=== PATIENT | female | born 1980 | race Two or more races ===

== ENCOUNTER 2019-06-01 10:23 | Inpatient (IN) | payer BC ==
[2019-06-01] MEDS ORDERED: CITRIC ACID/SODIUM CITRATE 30 ML UNIT-DOSE CUP PO ONE (11:11)
[2019-06-01] MEDS ORDERED: ELECTROLYTE-148 SOLN 1,000 ML IV SCH ×2 (11:11→12:11)
[2019-06-01 11:36] VITALS: BMI 26.3
[2019-06-01] MEDS ORDERED: OXYTOCIN 20 UNITS in 0.9% NS 20 UNIT/1,000 ML INFUS.BAG IV ONE (12:36)
[2019-06-01] MEDS ORDERED: ONDANSETRON 4 MG/2 ML VIAL IVPUSH PRN (12:58)
[2019-06-01] MEDS ORDERED: DEXAMETHASONE SOD PHOSPHATE 4 MG/1 ML VIAL ONE (13:21)
[2019-06-01] MEDS ORDERED: KETOROLAC TROMETHAMINE 30 MG/1 ML VIAL ONE (13:21)
[2019-06-01] MEDS ORDERED: ePHEDrine SULFATE 50 MG/1 ML AMPULE ONE (13:28)
[2019-06-01] MEDS ORDERED: OXYTOCIN 10 UNITS/ML VIAL ONE (13:31)
[2019-06-01] MEDS ORDERED: PHENYLEPHRINE HCL 10 MG/1 ML SINGLE DOSE VIAL ONE (13:33)
[2019-06-01] MEDS ORDERED: ceFAZolin SODIUM 1 GM VIAL ONE (13:34)
[2019-06-01] MEDS: D5W-LR W/ 20 UNITS OXYTOCIN 20 UNIT/1,000 ML INFUS.BAG IV SCH (13:44)
[2019-06-01] MEDS ORDERED: METHYLERGONOVINE MALEATE 0.2 MG/1 ML AMP IM PRN (14:52)
[2019-06-01] MEDS ORDERED: SENNOSIDES/DOCUSATE COMBO (SENNA PLUS) TABLET (UD) PO PRN (14:52)
[2019-06-01] MEDS ORDERED: oxyCODONE HCL 5 MG TABLET PO PRN ×2 (14:52)
--- NOTE | 2019-06-01 14:52 | OP ---
Operative Note - Note: Operative Date: 06/01/19 Pre-Operative Diagnosis: transverse lie Operation: primary lt c s Findings: bicornuated uterus Post-Operative Diagnosis: Same as Pre-op Surgeon: Edgardo Eid Eligibility Clerk: Gideon Joya Anesthesia: Spinal Estimated Blood Loss (mls): 700 Operative Report Dictated: Yes
--- NOTE | 2019-06-01 17:27 | HP ---
Past Medical History - Admission Chief Complaint: transverse lie for c s History Source: Patient Limitations to Obtaining History: No Limitations - Past Medical History FERRY TERMINAL AGENT: No: Alzheimer's, CVA, Dementia, Migraine, Multiple Sclerosis, Peripheral Neuropathy, Parkinson's, Seizure, Syncope, TIA, Vertigo, Other Cardiovascular: No: AFIB, Aneurysm, Aortic Insufficiency, Aortic Stenosis, CAD, CHF, Deep Vein Thrombosis, HTN, Hyperlipdemia, OK, Mitral Insufficiency, Mitral Stenosis, Murmur, Pulmonary Hypertension, Other Pulmonary: No: Asthma, Bronchitis, Cancer, COPD, O2 Dependent, Pneumonia, Previously Intubated, Pulmonary Embolus, Pulmonary Fibrosis, Sleep Apnea, Other Gastrointestinal: No: Ascites, Cancer, Constipation, Crohn's Disease, Diverticulitis, Diverticulosis, Esophageal Varices, Gastritis, GERD, GI Bleed, Hemorrhoids, Hiatal Hernia, Inflamatory Bowel Disease, Irritable Bowel Disease, Pancreatitis, Peptic Ulcer Disease, Ulcerative Colitis, Other Hepatobiliary: No: Cirrhosis, Cholelithiasis, Cholecystitis, Choledocholithiasis , Hepatitis A, Hepatitis B, Hepatitis C, Other Renal/: No: Renal Failure, Renal Inusuff, BPH, Cancer, Hematuria, Hemodialysis , Neurogenic Bladder, Renal Calculi, UTI, Other Reproductive: No: Ectopic , Endometriosis, Fibroids, PID, Polycystic Ovary Syndrome, Postmenopausal, Other ...: 1 ...Para: 0 ...Term: 0 ...: 0 ...Spon : 0 ...Induced : 0 ...Multiple Gestation: 0 ...LMP: 09/01/18 ... Weeks Gestation by Dates: 39.0 ...EDC by Dates: 06/08/19 ...EDC by Sono: 06/10/19 Heme/Onc: No: Anemia, B12 Deficiency, Bleeding Disorder, Cancer, Current Chemotherapy, Current Radiation Therapy, Hemochromatosis, Hypercoaguable State, Myeloproliferative Synd, Sickle Cell Disease, Sickle Cell Trait, Thrombocytopenia, Other Infectious Disease: No: AIDS, C-Diff, Herpes Zoster, HIV, MRSA, STD's, Tuberculosis, VREF, Other Psych: No: Addictions, Anxiety, Bipolar, Depression, Panic, Psychosis, Schizophrenia, Other Musculoskeletal: No: Bursitis, Chronic low back pain, Hemiparesis, Hemiplegia, Osteoarthritis, Paraplegia, Other Rheumatology: No: Fibromyalgia, Gout, Lupus, Rheumatoid Arthritis, Sarcoidosis, Vasculitis, Other ENT: No: Allergic Rhinitis, Sinusitis, Other Endocrine: No: Chao's Disease, Patrick's Disease, Diabetes Insipidus, Diabetes Mellitus, Hyperparathyroidism, Hyperthyroidism, Hypothyroidism, Osteopenia, SIADH, Other Dermatology: No: Basal Cell, Cellulitis, Eczema, Melanoma, Psoriasis, Squamous Cell, Other - Past Surgical History Past Surgical History: No: None, AAA Repair, AICD, Amputation, Appendectomy, Arthrosocopy, AV Fistula/Graft, Bariatric Surgery, Breast Biopsy, Bypass, CABG, Carotid Endarterectomy, Cataract Removal, Cholecystectomy, Colectomy, Colonoscopy, Colostomy, Craniotomy, , Cystectomy, Hernia Repair, Hysterectomy, Ileal Conduit, Ileosotomy, Joint Replacement, Kidney Transplant, Laminectomy, Liver Transplant, Mastectomy, Nephrectomy, Oopherectomy, Orchiectomy, Permanent Pacemaker, Prostatectomy, Splenectomy, Stent, Thoracotomy , TURP, Tonsillectomy, Tubal Ligation, Upper Endoscopy, Valve Replacement, Vasectomy, Vein Stripping/Ligation Hx Myomectomy: No Hx Transabdominal Cerclage: No - Advance Directives Advance Directives: Yes: Living Will - Smoking History Smoking history: Never smoked Have you smoked in the past 12 months: No - Alcohol/Substance Use Hx Alcohol Use: No History of Substance Use: reports: None - Social History Usual Living Arrangement: Yes: With Spouse ADL: Independent History of Recent Travel: No Home Medications - Allergies Allergies/Adverse Reactions: Allergies Allergy/AdvReac Type Severity Reaction Status Date / Time No Known Allergies Allergy Verified 06/01/19 11:38 - Home Medications Home Medications: Ambulatory Orders Vitamins (Sjr) - 1 tab PO DAILY 06/01/19 Family Disease History - Family Disease History Family History: Denies Review of Systems - Review of Systems Constitutional: reports: No Symptoms Eyes: reports: No Symptoms HENT: reports: No Symptoms Neck: reports: No Symptoms Cardiovascular: reports: No Symptoms Respiratory: reports: No Symptoms Gastrointestinal: reports: No Symptoms Genitourinary: reports: No Symptoms Breasts: reports: No Symptoms Reported Musculoskeletal: reports: No Symptoms Integumentary: reports: No Symptoms Neurological: reports: No Symptoms Endocrine: reports: No Symptoms Hematology/Lymphatic: reports: No Symptoms Psychiatric: reports: No Symptoms Pain Intensity: 0 Physical Exam - Maternity Vital Signs: Vital Signs Temperature 97.5 F L 06/01/19 15:50 Pulse Rate 69 06/01/19 15:50 Respiratory Rate 15 06/01/19 15:50 Blood Pressure 94/61 06/01/19 15:50 O2 Sat by Pulse Oximetry (%) 100 06/01/19 15:50 Constitutional: Yes: Well Nourished, No Distress, Calm Eyes: Yes: WNL, Conjunctiva Clear, EOM Intact HENT: Yes: WNL, Atraumatic, Normocephalic Neck: Yes: WNL, Supple, Trachea Midline Cardiovascular: Yes: WNL, Regular Rate and Rhythm Lungs: Clear to auscultation Breast(s): Yes: WNL - Abdominal Exam/OB Fundal Height: 38 Number of Fetuses: Single Presentation: Transverse Contractions: Yes Regularity: Irritability Intensity: Unaware Monitor Mode: External Heart Rate Location: [facility] Category: I Accelerations: Uniform Decelerations: None - Vaginal Exam/OB Vaginal Bleediing: No Speculum Exam: No Dilatation (cm): 1 Effacement (%): 20 Amniotic Membrane Status: Intact Presentation: Transverse/Shoulder Station: -3 - Physical Exam Musculoskeletal: Yes: WNL Extremities: Yes: WNL Edema: No Edema: LUE: 1+, RUE: 1+, LLE: 1+, RLE: 1+ Integumentary: Yes: WNL Deep Tendon Reflex Grade: Normal +2 ...Motor Strength: WNL Psychiatric: Yes: WNL, Alert, Oriented Hemorrhage Risk Assessment - Risk Factors Risk Score: 0 Risk Level: Low Risk Assessment/Plan transverse lie for c s
--- NOTE | 2019-06-01 20:05 | OP ---
DATE OF OPERATION: 06/01/2019 PREOPERATIVE DIAGNOSIS: A transverse lie. POSTOPERATIVE DIAGNOSIS: A transverse lie. Bicornuate uterus. PROCEDURE: Primary low transverse section. SURGEON: Edgardo Eid M.D. PLOW HOLDER: Diego Abernathy ANESTHESIA: Spinal ANESTHESIOLOGIST: Shreyas Puckett M.D. INDICATION: This is a 38-year-old female patient, 39 weeks . Baby has been stabilized from breech to vertex to transverse to breech to transverse again to today, a transverse lie, 39 weeks . Patient has been with sonogram in the past 6-7 weeks, and the patient is explained the situation, and the patient agreed for primary low transverse section. request too. DESCRIPTION OF PROCEDURE: Patient was placed to OR and placed on operating table in supine position after spinal anesthesia was obtained. The patient's abdomen and pelvis were prepped and draped in the usual sterile manner. Pfannenstiel incision was made. The incision was made through skin, subcutaneous tissue, until the fascia was nicked in the midline. The fascia was extended bilaterally. Intraperitoneal cavity was entered, bladder flap was created. Low transverse section of uterus was entered, baby delivered from transverse presentation to vertex presentation. Patient was removed in the vertex presentation. Baby was handed over to the human resources executive after umbilical cord was doubly clamped and cut. Cord blood gas was obtained. Placenta was removed. Uterus was closed in single layer, first layer interlocking Vicryl suture, good hemostasis, and both gutters clean. Both ovaries, fallopian tubes were within normal limits. However, uterus appeared to be bicornuate uterus. No septum in the uterus. Appeared to be thickened in the middle. So this could be the cause of the transverse lie of the baby, so uterus was closed in single layer. Good hemostasis. The both gutters were clean, and draining clear urine 100 mL. Peritoneum was closed. Fascia was closed. Skin was closed. Transferred to recovery room in stable condition. MD CECILE STEVENSON/[id number]
[2019-06-01] MEDS: IBUPROFEN 800 MG/8 ML IJ IVPB PRN (21:45)
[2019-06-02] MEDS: IBUPROFEN 800 MG/8 ML IJ IVPB PRN (05:12)
[2019-06-02 08:27] LABS: BASO % 0.5 % (0-2.0); HEMATOCRIT 31.7 % (32.4-45.2); HEMOGLOBIN 10.7 GM/dL (10.7-15.3); LYMPH % 22.8 % (8-40); MCH 30.2 pg (25.7-33.7); MCHC 33.8 g/dl (32.0-36.0); MEAN CELL VOLUME 89.3 fl (80-96); MEAN PLT VOLUME 11.3 fl (7.5-11.1); MONO % 5.6 % (3.8-10.2); NEUT % 68.1 % (42.8-82.8); RBC 3.55 M/mm3 (3.60-5.2); RDW 13.2 % (11.6-15.6); WHITE BLOOD COUNT 12.1 K/mm3 (4.0-10.0)
[2019-06-02 08:47] LABS: PLATELET COUNT 118 K/MM3 (134-434)
[2019-06-02] MEDS: IBUPROFEN 600 MG TABLET (FP) PO PRN ×2 (13:52→21:48)
[2019-06-02] MEDS: SIMETHICONE 80 MG TAB.CHEW (FP) PO PRN ×2 (13:52→21:48)
[2019-06-02] MEDS ORDERED: BISACODYL 10 MG SUPP.RECT RC PRN (14:53)
--- NOTE | 2019-06-02 16:19 | PN ---
Progress Note (short form) - Note Progress Note: Anesthesiology Post-op 38 y.o. woman POD#1 s/p C/S under spinal. Pt. is doing well. Pain under control. No h/a. Spinal resolved. VSS. 38 y.o. woman with stable post-operative course. Continue management as per primary team.
[2019-06-03] MEDS: IBUPROFEN 600 MG TABLET (FP) PO PRN ×3 (08:01→22:17)
[2019-06-03] MEDS: SIMETHICONE 80 MG TAB.CHEW (FP) PO PRN ×3 (08:01→22:17)
[2019-06-03 09:00] LABS: BLOOD UREA NITROGEN 6.6 mg/dL (7-18); CALCIUM 8.3 mg/dL (8.5-10.1); CREATININE 0.5 mg/dL (0.55-1.3); POTASSIUM 3.8 mmol/L (3.5-5.1)
[2019-06-03] MEDS: ENOXAPARIN NA (PORCINE) 40 MG/0.4 ML DISP.SYRIN SQ SCH ×2 (12:01→12:41)
[2019-06-03] MEDS: D5W-LR W/ 20 UNITS OXYTOCIN 20 UNIT/1,000 ML INFUS.BAG IV SCH (12:40)
[2019-06-03] MEDS: ACETAMINOPHEN 325 MG TABLET (FP) PO PRN ×2 (15:02→22:16)
[2019-06-03 20:23] VITALS: PULSE 65
--- NOTE | 2019-06-03 21:46 | PN ---
Post Progress Note Type of Delivery: Primary C/S Vital Signs: Vital Signs Temperature 98.1 F 06/03/19 20:22 Pulse Rate 65 06/03/19 20:22 Respiratory Rate 20 06/03/19 20:22 Blood Pressure 120/75 06/03/19 20:22 O2 Sat by Pulse Oximetry (%) 100 06/01/19 15:50 Breast Exam: Yes: Soft Uterus: Yes: Fundus Firm, Fundus below umbilicus Incision: Yes: Dressing dry and intact, Sutures intact Abdomen/GI: Yes: Abdomen soft, Passing flatus, Tolerating PO Lochia: Yes: Serosa Lochia, amount: Small Extremities: Yes: Calves non-tender Activity: Ambulating - Labs Labs: CBC WBC 12.1 K/mm3 (4.0-10.0) H 06/02/19 07:05 RBC 3.55 M/mm3 (3.60-5.2) L 06/02/19 07:05 Hgb 10.7 GM/dL (10.7-15.3) 06/02/19 07:05 Hct 31.7 % (32.4-45.2) L 06/02/19 07:05 MCV 89.3 fl (80-96) 06/02/19 07:05 MCH 30.2 pg (25.7-33.7) 06/02/19 07:05 MCHC 33.8 g/dl (32.0-36.0) 06/02/19 07:05 RDW 13.2 % (11.6-15.6) 06/02/19 07:05 Plt Count 118 K/MM3 (134-434) L 06/02/19 07:05 MPV 11.3 fl (7.5-11.1) H 06/02/19 07:05 Absolute Neuts (auto) 8.2 K/mm3 (1.5-8.0) H 06/02/19 07:05 Neutrophils % 68.1 % (42.8-82.8) 06/02/19 07:05 Lymphocytes % 22.8 % (8-40) 06/02/19 07:05 Monocytes % 5.6 % (3.8-10.2) 06/02/19 07:05 Eosinophils % 3.0 % (0-4.5) 06/02/19 07:05 Basophils % 0.5 % (0-2.0) 06/02/19 07:05 Nucleated RBC % 0 % (0-0) 06/02/19 07:05 Assessment/Plan dcpt home tomorrow
--- NOTE | 2019-06-03 21:48 | DS ---
Physical Exam-MATERIALS ENGINEERING TECHNICIAN Vital Signs: Vital Signs Temperature 98.1 F 06/03/19 20:22 Pulse Rate 65 06/03/19 20:22 Respiratory Rate 20 06/03/19 20:22 Blood Pressure 120/75 06/03/19 20:22 O2 Sat by Pulse Oximetry (%) 100 06/01/19 15:50 Constitutional: Yes: Well Nourished, No Distress, Calm Eyes: Yes: WNL, Conjunctiva Clear, EOM Intact HENT: Yes: WNL, Atraumatic, Normocephalic Neck: Yes: WNL, Supple, Trachea Midline Cardiovascular: Yes: WNL, Regular Rate and Rhythm Respiratory: Yes: WNL, Regular, CTA Bilaterally Gastrointestinal: Yes: WNL, Normal Bowel Sounds, Soft ...Rectal Exam: Yes: WNL Renal/: Yes: WNL Pelvis: Yes: WNL External Genitalia: Yes: Normal Internal Exam Deferred: No Vaginal Exam: Yes: Normal Cervix: Yes: Normal Uterus: Yes: Normal Adnexa: Normal: Bilateral ....Post : Yes: Uterus non-tender Breast(s): Yes: WNL Musculoskeletal: Yes: WNL Extremities: Yes: WNL Edema: Yes Edema: LUE: 1+, RUE: 1+, LLE: 1+, RLE: 1+ Integumentary: Yes: WNL Wound/Incision: Yes: Clean/Dry, Well Approximated Neurological: Yes: WNL, Alert, Oriented ...Motor Strength: WNL Psychiatric: Yes: WNL, Alert, Oriented Labs: CBC, BMP 06/02/19 07:05 06/03/19 07:26 Delivery - Delivery Type of Anesthesia: Spinal EBL (cc): 700 Delivery, Single - Stages of Labor Date of Delivery: 06/01/19 Time of Delivery: 13:43 Time Placenta Delivered: 13:44 - Condition of Quality Assurance Inspector/Top Frame Fitter Present: No Infant Gender: Male Weight: 2.863 kg Total Hours ROM (Hrs/Mins): 0Hrs/2Mins - 1 Minute Total Score: 9 5 Minutes Total Score: 9 - [place] Feeding Plan Initial Plan: Exclusive throughout hospitalization Discharge Summary Reason For Visit: Condition: Stable - Instructions Diet, Activity, Other Instructions: regular - Home Medications Comprehensive Discharge Medication List: Ambulatory Orders Vitamins (Sjr) - 1 tab PO DAILY 06/01/19
[2019-06-04 07:05] LABS: BASO % 0.6 % (0-2.0); EOS % 8.4 % (0-4.5); HEMATOCRIT 30.4 % (32.4-45.2); HEMOGLOBIN 10.5 GM/dL (10.7-15.3); LYMPH % 35.8 % (8-40); MCH 30.7 pg (25.7-33.7); MCHC 34.5 g/dl (32.0-36.0); MEAN PLT VOLUME 10.7 fl (7.5-11.1); MONO % 6.8 % (3.8-10.2); NEUT % 48.4 % (42.8-82.8); PLATELET COUNT 151 K/MM3 (134-434); RBC 3.42 M/mm3 (3.60-5.2); RDW 13.3 % (11.6-15.6); WHITE BLOOD COUNT 8.4 K/mm3 (4.0-10.0)
[2019-06-04] MEDS: ACETAMINOPHEN 325 MG TABLET (FP) PO PRN (10:22)
[2019-06-04] MEDS: SIMETHICONE 80 MG TAB.CHEW (FP) PO PRN (10:23)
[2019-06-04 13:03] VITALS: BP 110/79; TEMP 97.8
--- NOTE | 2019-06-14 14:26 | PATH ---
Surgical Pathology Report Patient Name: MARY AMADO [facility]. Rec. #: [id number] /Age/Gender: 1980 (Age: 38) / F Account: [id number] Location: [facility] OBS/STERILIZATION TECH Taken: 06/01/2019 Received: 06/04/2019 Reported: 06/14/2019 Physicians: Edgardo Eid MD Specimen(s) Received PLACENTA Clinical History 39 weeks primary for transverse presentation Final Diagnosis PLACENTA, : MATURE THIRD TRIMESTER PLACENTA (354 G) SHOWING ACUTE CHORIOAMNIONITIS AND TRIVESSEL UMBILICAL CORD. Electronically Signed [place] Mckeon M.D. Gross Description The specimen is received fresh labeled placenta and is a 354 gram, 19 x16 x 1.5cm. placenta with attached membranes and umbilical cord. The attached membranes appear cabrera and dull and insert marginally. The umbilical cord measures 33 cm. in length and averages 1.1 cm. in diameter. The cord inserts centrally, 5 centimeter to the nearest margin. No true knots or strictures are identified. Cut surface of the umbilical cord reveals 3 vessels. Sectioning reveals red-brown, spongy parenchyma. No lesions are identified. Breaker Machine Operator sections are submitted in three cassettes as follows: 1- membrane rolls and umbilical cord; 2-3- full thickness sections of placenta KWS/06/04/2019 sulki/06/04/2019
== END 2019-06-04 14:18 | disposition home or self-care (01) | DRG 788 ==
LOC: JLDR 10:23 → J3W 16:10
PROVIDERS: ADMIT Obstetrics & Gynecology; ATTEND Obstetrics & Gynecology
PROC: 10D00Z1 Extraction of Products of Conception, Low, Open Approach (ICD-10-PCS; principal; 2019-06-01)
DX: O32.2XX0 Maternal care for transverse and oblique lie, not applicable or unspecified (principal); O34.03 Maternal care for unspecified congenital malformation of uterus, third trimester; Q51.3 Bicornate uterus; Z3A.39 39 weeks gestation of pregnancy; Z37.0 Single live birth
CPT/HCPCS: 36415; 80048; 85025; 87389; 88307-TC

== ENCOUNTER 2022-11-26 00:15 | Inpatient (IN) | payer OTHER ==
[2022-11-26] MEDS ORDERED: CITRIC ACID/SODIUM CITRATE 30 ML UNIT-DOSE CUP PO ONE (00:50)
[2022-11-26] MEDS ORDERED: ELECTROLYTE-148 SOLN 500 ML IV SCH ×2 (00:50→01:20)
[2022-11-26] MEDS ORDERED: FENTANYL CITRATE/PF 50 MCG/ML VIAL ONE (00:55)
[2022-11-26] MEDS ORDERED: morphine SULFATE (PF) 1 MG/2 ML SYRINGE ONE (00:55)
[2022-11-26] MEDS ORDERED: DEXAMETHASONE SOD PHOSPHATE 4 MG/1 ML VIAL ONE (00:58)
[2022-11-26] MEDS ORDERED: ONDANSETRON 4 MG/2 ML VIAL ONE (00:58)
[2022-11-26] MEDS ORDERED: OXYTOCIN 10 UNITS/ML VIAL ONE ×2 (00:58→02:02)
[2022-11-26 01:09] VITALS: BMI 24.2
[2022-11-26] MEDS ORDERED: PHENYLEPHRINE HCL 10 MG/1 ML SINGLE DOSE VIAL ONE (01:31)
[2022-11-26] MEDS ORDERED: morphine SULFATE/PF 1 MG/2 ML (2cc Syringe - QUVA) EP ONE (01:33)
[2022-11-26] MEDS ORDERED: ceFAZolin SODIUM 1 GM VIAL ONE (01:34)
[2022-11-26] MEDS ORDERED: ONDANSETRON 4 MG/2 ML VIAL IVPUSH PRN (03:01)
[2022-11-26] MEDS ORDERED: IBUPROFEN 600 MG TABLET (FP) PO PRN (03:01)
[2022-11-26] MEDS ORDERED: ELECTROLYTE-148 SOLN 500 ML IV ONE (03:03)
[2022-11-26] MEDS ORDERED: IBUPROFEN 800 MG/8 ML IJ IVPB PRN (03:07)
[2022-11-26] MEDS ORDERED: ACETAMINOPHEN 325 MG TABLET (FP) PO PRN (03:07)
[2022-11-26] MEDS ORDERED: SENNOSIDES/DOCUSATE COMBO (SENNA PLUS) TABLET (UD) PO PRN (03:07)
[2022-11-26] MEDS ORDERED: METHYLERGONOVINE MALEATE 0.2 MG/1 ML AMP IM PRN (03:07)
[2022-11-26] MEDS ORDERED: ELECTROLYTE-148 SOLN 1,000 ML IV SCH (03:15)
[2022-11-26] MEDS ORDERED: OXYTOCIN 20 UNITS in 0.9% NS 20 UNIT/1,000 ML INFUS.BAG IV SCH (03:15)
[2022-11-26 07:44] LABS: BASO % 0.2 % (0-2.0); EOS % 0.4 % (0-4.5); HEMATOCRIT 33.3 % (32.4-45.2); HEMOGLOBIN 11.4 GM/dL (10.7-15.3); LYMPH % 11.1 % (8-40); MCH 29.9 pg (25.7-33.7); MCHC 34.2 g/dl (32.0-36.0); MEAN CELL VOLUME 87.3 fl (80-96); MEAN PLT VOLUME 11.5 fl (7.5-11.1); MONO % 3.7 % (3.8-10.2); NEUT % 84.6 % (42.8-82.8); PLATELET COUNT 134 10^3/uL (134-434); RBC 3.81 M/mm3 (3.60-5.2); RDW 12.6 % (11.6-15.6); WHITE BLOOD COUNT 13.6 K/mm3 (4.0-10.0)
[2022-11-26] MEDS: FERROUS SO4 325 MG TABLET (FP) PO SCH ×2 (15:00→21:04)
[2022-11-26] MEDS: PRENATAL VITAMINS W/ FOLIC ACID TABLET (FP) PO SCH (15:03)
[2022-11-26] MEDS: SIMETHICONE 80 MG TAB.CHEW (FP) PO PRN ×2 (15:03→19:01)
[2022-11-26] MEDS ORDERED: oxyCODONE HCL 5 MG TABLET PO PRN ×2 (15:07)
[2022-11-26] MEDS: IBUPROFEN 600 MG TABLET (FP) PO PRN (19:00)
[2022-11-26] MEDS: ACETAMINOPHEN 325 MG TABLET (FP) PO PRN (21:04)
[2022-11-27] MEDS ORDERED: BISACODYL 10 MG SUPP.RECT RC PRN (03:07)
[2022-11-27] MEDS: IBUPROFEN 600 MG TABLET (FP) PO PRN ×4 (06:28→22:13)
[2022-11-27] MEDS: SIMETHICONE 80 MG TAB.CHEW (FP) PO PRN ×3 (06:29→21:23)
[2022-11-27] MEDS ORDERED: DIPHTH,PERTUSS(ACELL),TET 0.5 ML DISP.SYRIN IM ONE (10:00)
[2022-11-27] MEDS: FERROUS SO4 325 MG TABLET (FP) PO SCH ×2 (10:46→21:21)
[2022-11-27] MEDS: PRENATAL VITAMINS W/ FOLIC ACID TABLET (FP) PO SCH (10:46)
[2022-11-27 22:01] VITALS: PULSE 66
[2022-11-28] MEDS: IBUPROFEN 600 MG TABLET (FP) PO PRN (06:28)
[2022-11-28 09:29] VITALS: BP 111/75; RESP 18; TEMP 98.2
[2022-11-28] MEDS: PRENATAL VITAMINS W/ FOLIC ACID TABLET (FP) PO SCH (09:29)
[2022-11-28] MEDS: FERROUS SO4 325 MG TABLET (FP) PO SCH (09:29)
[2022-11-28] MEDS: ACETAMINOPHEN 325 MG TABLET (FP) PO PRN (09:29)
== END 2022-11-28 12:00 | disposition home or self-care (01) | DRG 833 ==
LOC: JDEL 00:15 → JLDR 00:35 → J3W 03:59
PROVIDERS: ADMIT Obstetrics & Gynecology; ATTEND Obstetrics & Gynecology
DX: O34.211 Maternal care for low transverse scar from previous cesarean delivery (principal); Z3A.39 39 weeks gestation of pregnancy; Z37.0 Single live birth
CPT/HCPCS: 36415; 85025; 88302-TC; 88307-TC; 90715